=== PATIENT | male | born 1960 | race Two or more races ===

== ENCOUNTER 2019-04-27 12:14 | Emergency (ER) | payer BC, OTHER ==
[2019-04-27 12:22] VITALS: BP 104/72; PULSE 95; TEMP 98.1; BMI 27.8
--- NOTE | 2019-04-27 13:41 | PDOC ---
History of Present Illness - General Chief Complaint: Pain Stated Complaint: LT SHOULER PAIN (SLIP AND FALL) Time Seen by Provider: 04/27/19 12:38 History Source: Patient Exam Limitations: No Limitations - History of Present Illness Initial Comments: 04/27/19 13:40 58-year-old male [id number] complains of left shoulder pain status post slip and fall 2 days ago. Patient was in the tub and broke his fall with his left arm. Denies head strike, headache, LOC, neck pain, chest pain, abdominal pain or any other complaint. has been taking ibuprofen last dose at 4 AM today. ROS: GENERAL/CONSTITUTIONAL: No fever, chills, weakness, dizziness HEAD, EYES, EARS, NOSE AND THROAT: No changes in vision, No ear pain or discharge, No sore throat CARDIOVASCULAR: No chest pain RESPIRATORY: No shortness of breath or cough GASTROINTESTINAL: No pain, nausea, vomiting, diarrhea or constipation GENITOURINARY: No dysuria MUSCULOSKELETAL: Left shoulder pain SKIN: No rash NEUROLOGIC: No headache, vertigo, loss of consciousness, or loss of sensation Is this a multiple visit Asthma Patient?: No Past History - Past Medical History Allergies/Adverse Reactions: Allergies Allergy/AdvReac Type Severity Reaction Status Date / Time No Known Allergies Allergy Verified 04/27/19 12:16 Home Medications: Ambulatory Orders Glimepiride [Amaryl -] 2 mg PO DAILY 04/27/19 Omeprazole Magnesium [Acid State Assessed Properties Director] 20 mg PO DAILY 04/27/19 Simvastatin 10 mg PO HS 04/27/19 Sitagliptin Phosphate [Januvia] 100 mg PO DAILY 04/27/19 Tamsulosin HCl [Flomax -] 0.4 mg PO BID 04/27/19 COPD: No Diabetes: Yes Disorders: Yes (enlarged prostate) Hypercholesterolemia: Yes - Psycho Social/Smoking Cessation Hx Smoking History: Unknown if ever smoked Hx Alcohol Use: No Drug/Substance Use Hx: No *Physical Exam - Vital Signs Last Vital Signs Temp Pulse Resp BP Pulse Ox 98.1 F 95 H 18 104/72 99 04/27/19 12:20 04/27/19 12:20 04/27/19 12:20 04/27/19 12:20 04/27/19 12:20 ED Treatment Course - RADIOLOGY Radiology Studies Ordered: Category Date Time Status SHOULDER-LEFT [RAD] Stat Radiology 04/27/19 13:08 Ordered Medical Decision Making - Medical Decision Making 04/27/19 13:41 58-year-old male presents with left shoulder pain status post mechanical slip and fall 2 days ago. 04/27/19 14:40 Left shoulder x-ray with no acute fracture or dislocation IM Toradol 30 mg Shoulder sling provided Advised patient to follow-up with orthopedist this week Discharge - Discharge Information Problems reviewed: Yes Clinical Impression/Diagnosis: Left shoulder pain Qualifiers: Chronicity: acute Qualified Code(s): M25.512 - Pain in left shoulder Condition: Stable Disposition: HOME - Admission No - Follow up/Referral Referrals: Ted Michael [Primary Care Provider] - Doug Khan MD [Staff Physician] - - Patient Discharge Instructions Additional Instructions: Wear shoulder sling however remove several times a day and range shoulder to avoid frozen shoulder syndrome Take ibuprofen 600 mg every 6 hours as needed for pain Follow-up with orthopedist in 1 week - Post Discharge Activity
[2019-04-27] MEDS ORDERED: KETOROLAC TROMETHAMINE 30 MG/1 ML VIAL IM ONE (14:32)
[2019-04-27] MEDS ORDERED: KETOROLAC TROMETHAMINE 30 MG/1 ML VIAL ONE (14:35)
== END 2019-04-27 14:47 | disposition home or self-care (01) ==
LOC: JERFT 12:14
PROC: 3E0233Z Introduction of Anti-inflammatory into Muscle, Percutaneous Approach (ICD-10-PCS; principal; 2019-04-27)
DX: M25.512 Pain in left shoulder (principal); E11.9 Type 2 diabetes mellitus without complications; Z79.84 Long term (current) use of oral hypoglycemic drugs; E78.00 Pure hypercholesterolemia, unspecified; N40.0 Benign prostatic hyperplasia without lower urinary tract symptoms
CPT/HCPCS: 73030-TC-LT-FY; 99284-25

== ENCOUNTER 2024-03-23 13:15 | Emergency (ER) | payer OTHER ==
[2024-03-23 14:11] VITALS: BP 128/82; PULSE 82; RESP 16; TEMP 98.8; BMI 28.1
[2024-03-23] MEDS: TETRACAINE 0.5% HCL 0.6ML DROPPER.BOTTLE OD ONE (14:55)
[2024-03-23] MEDS: FLUORESCEIN NA 1 EA STRIP OD ONE (14:55)
[2024-03-23] MEDS ORDERED: FLUORESCEIN NA 1 EA STRIP ONE (14:55)
[2024-03-23] MEDS ORDERED: TETRACAINE 0.5% OPHTH SOLN 2 ML BOTTLE ONE ×2 (14:55→15:09)
[2024-03-23] MEDS: POLYMYXIN B SULFATE/TMP 10 ML OPHTHALMIC SOLUTION OD ONE (15:31)
== END 2024-03-23 15:38 | disposition home or self-care (01) ==
LOC: JERFT 13:15
DX: S05.01XA Injury of conjunctiva and corneal abrasion without foreign body, right eye, initial encounter (principal); X58.XXXA Exposure to other specified factors, initial encounter
CPT/HCPCS: 99283-25

== ENCOUNTER 2024-08-22 16:11 | Emergency (ER) | payer OTHER, BC ==
[2024-08-22 16:21] VITALS: RESP 18; BMI 27.8
[2024-08-22 17:05] LABS: ABSOLUTE IMMATURE GRANULOCYTES 0.03 x10^3/uL (0.0-0.031); BASOPHILS # 0.06 x10^3/uL (0.01-0.08); EOSINOPHIL % 2.7 % (0.8-7.0); EOSINOPHILS # 0.22 x10^3/uL (0.04-0.54); HEMATOCRIT 47.7 % (40.1-51.0); MCHC 33.5 g/dl (32.3-36.5); MEAN PLT VOLUME 10.2 fl (9.4-12.4); MONOCYTE # 0.71 x10^3/uL (0.30-0.82); MONOCYTE % 8.7 % (5.3-12.2); PLATELET COUNT 271 x10^3/uL (163-337); RDW 12.2 % (12.2-16.4)
[2024-08-22 17:06] LABS: PH,URINE 6.5 (5.0-8.0); URINE APPEARANCE CLEAR; URINE BILIRUBIN NEGATIVE (NEGATIVE); URINE COLOR YELLOW; URINE GLUCOSE (UA) 3+ (NEGATIVE); URINE KETONE NEGATIVE (NEGATIVE); URINE LEUK ESTERASE NEGATIVE (NEGATIVE); URINE NITRITE NEGATIVE (NEGATIVE); URINE PROTEIN NEGATIVE (NEGATIVE); URINE UROBILINOGEN 0.2 mg/dL (0.2-1.0)
[2024-08-22] MEDS: LACTATED RINGERS SOLUTION 1000 ML INFUS.BAG IV ONE ×2 (17:08→19:15)
[2024-08-22 17:17] LABS: VENOUS BASE EXCESS 2.2 mmol/L (-2-2); VENOUS O2 SATURATION 78.1 % (70-80); VENOUS PCO2 50.5 mmHg (38-52); VENOUS PH 7.371 (7.310-7.410)
[2024-08-22 17:23] LABS: POTASSIUM 4.2 mmol/L (3.5-5.1)
[2024-08-22 17:26] LABS: ALBUMIN 3.9 g/dl (3.4-5.0); BLOOD UREA NITROGEN 17.2 mg/dL (7-18); CALCIUM 9.8 mg/dL (8.5-10.1)
[2024-08-22 17:29] LABS: CREATININE 0.8 mg/dL (0.55-1.3)
[2024-08-22 17:30] LABS: BILIRUBIN,TOTAL 0.5 mg/dL (0.2-1)
[2024-08-22 17:31] LABS: TOT PROT 7.3 g/dl (6.4-8.2)
[2024-08-22 18:20] LABS: HCV DIAGNOSTIC IN-HOUSE W/RFLX NON-REACTIVE (NONREACTIVE); HIV INTERPRETATION NEGATIVE (NEGATIVE)
[2024-08-22 20:49] VITALS: BP 138/76; PULSE 78; TEMP 98.1
== END 2024-08-22 20:49 | disposition home or self-care (01) ==
LOC: JER 16:11
DX: E11.65 Type 2 diabetes mellitus with hyperglycemia (principal); R35.0 Frequency of micturition; R39.198 Other difficulties with micturition; M54.9 Dorsalgia, unspecified
CPT/HCPCS: 36415; 74176-TC; 80053; 81003; 82010; 82803; 82962; 83605; 83735; 85025; 86803; 87086; 87389; 99284-25